=== PATIENT | female | born 1960 | race Caucasian/White ===

== ENCOUNTER 2017-04-19 11:44 | Emergency (ER) | payer SELFPAY ==
[~2017-04-19] VITALS: Ht 170.2 cm; Wt 78.1 kg
[~2017-04-19 11:44] MED LIST: PERC5TAB12 PO
[2017-04-19 11:49] VITALS: BP 134/85; PULSE 95; RESP 16; TEMP 98; O2SAT 94
[2017-04-19] MEDS ORDERED: IBUP800T23 PO (12:25)
[2017-04-19] MEDS ORDERED: ROBA500T PO (12:25)
--- NOTE | 2017-04-19 12:25 | PD ---
HPI Chief Complaint: Back/ Neck Pain or Injury Time Seen by Provider: 12:05 Travel History International Travel<30 days: No Contact w/Intl Traveler<30days: No Traveled to known affect area: No History of Present Illness HPI 56-year-old female presents emergency department for evaluation of right low back pain that radiates down the buttocks into the leg. She reports the pain has been present for greater than a month. She denies injury/trauma. She reports she's had similar pain in the past which is usually relieved with Motrin. She reports this episode is unrelieved by OTC Advil. She denies numbness or tingling or weakness in lower extremities. No incontinence. No fever or chills. She reports the pain as aching localized to the right lower back radiates down into the buttocks and at times to the posterior thigh. Worsened by movement, relieved with rest and Motrin. Severity is 8/10. Denies past medical history. No medications. PFSH Past Medical History Medical History: Denies Significant Hx Diminished Hearing: No Kidney Stones: Yes (HX OF IN LT KIDNEY) LMP: TL-MENOPAUSAL Menopausal: Yes Past Surgical History Genitourinary Surgery: Yes (lithotripsy ) Social History Alcohol Use: No Tobacco Use: Yes (/2 PPD) Substance Use: No Allergies-Medications (Allergen,Severity, Reaction): Coded Allergies: No Known Allergies (Verified , 04/19/17) Reported Meds & Prescriptions Reported Meds & Active Scripts Active No Active Prescriptions or Reported Medications Review of Systems Except as stated in HPI: all other systems reviewed are Neg Physical Exam Narrative GENERAL: Well-nourished, well-developed patient. No acute distress SKIN: Focused skin assessment warm/dry. HEAD: Normocephalic. EYES: No scleral icterus. No injection or drainage. NECK: Supple, trachea midline. No JVD or lymphadenopathy. CARDIOVASCULAR: Regular rate and rhythm without murmurs, gallops, or rubs. RESPIRATORY: Breath sounds equal bilaterally. No accessory muscle use. GASTROINTESTINAL: Abdomen soft, non-tender, nondistended. MUSCULOSKELETAL: No cyanosis, or edema. 2+ distal pulses. 2+ DTRs. Dorsiflex and plantarflex intact. BACK: without obvious deformity. No CVA tenderness. No midline spine tenderness. Tender over the right SI joint. Data Data Last Documented VS Vital Signs Date Time Temp Pulse Resp B/P Pulse Ox O2 Delivery O2 Flow Rate FiO2 04/19/17 11:49 98.0 95 16 134/85 94 MDM Medical Decision Making Medical Screen Exam Complete: Yes Emergency Medical Condition: Yes Medical Record Reviewed: Yes Differential Diagnosis Lumbar strain, sciatica, SI joint pain Narrative Course 56-year-old female percents emergency department for evaluation of right low back pain that radiates down into the right leg. She reports the pain has been present for 1 month. She reports similar symptoms in the past that are usually relieved with OTC Advil. Patient is well-appearing in no acute distress. No difficulty ambulating. On exam she has mild tenderness in the right lumbar region as well as SI joint. Her exam is consistent with sciatica pain. She will be treated with NSAIDs and muscle relaxers and instructed to follow-up with her primary care doctor. Diagnosis Primary Impression: Sciatica Qualified Code: M54.31 - Sciatica of right side Referrals: Primary Care Physician Patient Instructions: General Instructions, Sciatica (ED) Additional Instructions: Take medications as prescribed. Avoid heavy lifting or strenuous activity. Follow-up with her primary doctor. Return to emergency department if he developed new or worsening symptoms. Scripts Methocarbamol (Robaxin)500 Mg [id number] Mg PO TID PRN (MUSCLE SPASM) #12 TAB Prov:Jaclyn Portillo 04/19/17 Ibuprofen 800 Mg [id number] Mg PO Q8H PRN (Pain/Inflammation) #30 TAB Prov:Jaclyn Portillo 04/19/17 Disposition: 01 DISCHARGE HOME Condition: Stable Jaclyn Portillo Apr 19, 2017 12:25
[2017-04-19] MEDS ORDERED: KETOROLAC TROMETHAMINE 60 MG/2 ML (IM) VIAL IM ONE (12:30)
== END 2017-04-19 12:41 | disposition home or self-care (01) ==
LOC: PHEFT 11:44
DX: M54.31 Sciatica, right side (principal); F17.200 Nicotine dependence, unspecified, uncomplicated
CPT/HCPCS: 96372; 99284; J1885